=== PATIENT | female | born 1960 | race Caucasian/White ===

== ENCOUNTER 2022-05-26 14:36 | Outpatient (CLI) | payer BC | END 2022-05-26 14:37 | disposition home or self-care (01) | LOC: CSHMAMMO 14:36 | PROVIDERS: ATTEND Family Medicine | DX: Z12.31 Encounter for screening mammogram for malignant neoplasm of breast (principal) | CPT/HCPCS: 77063; 77067 ==

== ENCOUNTER 2022-06-15 12:40 | Outpatient (CLI) | payer BC | END 2022-06-15 12:41 | disposition home or self-care (01) | LOC: CSHLAB 12:40 | PROVIDERS: ATTEND Internal Medicine Gastroenterology | DX: Z20.822 Contact with and (suspected) exposure to COVID-19 (principal) | CPT/HCPCS: 87811 ==

== ENCOUNTER 2022-06-20 07:55 | Day surgery (SDC) | payer BC ==
[2022-06-16 11:10] VITALS: BMI 28.1
[2022-06-20] MEDS ORDERED: Lidocaine 1% MPF 2 ML VIAL ONE (10:18)
[2022-06-20] MEDS ORDERED: Lidocaine 1% PF 5 ML VIAL ONE (10:30)
[2022-06-20] MEDS ORDERED: PROPOFOL 0 ML ONE (10:30)
[2022-06-20] MEDS ORDERED: Fentanyl 100 MCG/2 ML VIAL ONE (10:32)
[2022-06-20] MEDS ORDERED: PROPOFOL 20 ML ONE (10:54)
== END 2022-06-20 11:35 | disposition home or self-care (01) ==
LOC: CSHSDC 07:55
PROVIDERS: ATTEND Internal Medicine Gastroenterology
PROC: 0DJ08ZZ Inspection of Upper Intestinal Tract, Via Natural or Artificial Opening Endoscopic (ICD-10-PCS; principal; 2022-06-20)
DX: K21.9 Gastro-esophageal reflux disease without esophagitis (principal); I10 Essential (primary) hypertension; E78.5 Hyperlipidemia, unspecified; I25.10 Atherosclerotic heart disease of native coronary artery without angina pectoris; F41.9 Anxiety disorder, unspecified; F32.A Depression, unspecified; E03.9 Hypothyroidism, unspecified; Z20.822 Contact with and (suspected) exposure to COVID-19; Z87.891 Personal history of nicotine dependence; Z79.899 Other long term (current) drug therapy
CPT/HCPCS: J2704; J3010

== ENCOUNTER 2022-07-05 10:17 | Outpatient (CLI) | payer BC | END 2022-07-05 10:18 | disposition home or self-care (01) | LOC: CSHULT 10:17 | PROVIDERS: ATTEND Internal Medicine Gastroenterology | DX: R10.9 Unspecified abdominal pain (principal) | CPT/HCPCS: 76700 ==